=== PATIENT | male | born 1955 | race Caucasian/White ===

== ENCOUNTER 2017-06-26 19:58 | Emergency (ER) | payer OTHER ==
[2017-06-26 23:21] VITALS: BP 105/67
== END 2017-06-26 23:05 | disposition home or self-care (01) ==
LOC: ED 19:58
DX: L03.115 Cellulitis of right lower limb (principal); M19.90 Unspecified osteoarthritis, unspecified site; M54.30 Sciatica, unspecified side; Z88.1 Allergy status to other antibiotic agents
CPT/HCPCS: 90715